=== PATIENT | female | born 1985 | race Caucasian/White ===

== ENCOUNTER 2017-01-22 17:55 | Emergency (ER) | payer BC, OTHER ==
--- NOTE | ~2017-01-22 | CR170 ---
[facility] A Service of [facility] RADIOLOGY TEXT RESULTS PATIENT: ARACELI ARREDONDO LOCATION: CFTX : 83 UNIT #: [id number] AGE: [address]: Betty Mayo SEX: F ORDER DR: [id number] [facility] [address] [place], [place] [address] [id number] E MR#: [id number] Acc #: [id number] NAME: ARACELI ARREDONDO : 1985 SEX: F STUDY DATE/TIME: 01/22/2017 17:59 UNIT: [facility] ROOM: STUDY DESCRIPTION: CR Knee 2 Views Rt Attending Physician: Betty Mayo P.A.-C. Ordering Physician: Betty Mayo P.A.-C. Primary Care Physician: Primary Care Physician No MEDICAL IMAGING REPORT This report is preliminary unless electronic signature is present EXAM Right knee, 2 views. HISTORY Knee pain after tick bite 1 week ago. FINDINGS AP and lateral projection of the knee shows smooth articular anatomy without indication of fracture or dislocation at the major weight-bearing surface of the knee. There is no indication of radiopaque foreign body about the knee surface or joint effusion. IMPRESSION Normal knee. Dictated by... Eugene Rodriguez M.D. THIS IS AN ELECTRONICALLY VERIFIED REPORT Eugene Rodriguez M.D. at 01/22/2017 11:02 PM LUPE/luiza TD: 01/22/2017 22:47 JOB #: [id number] MEDICAL IMAGING REPORT Page 1 of 1 COPY
[~2017-01-22 17:55] MED LIST: ?ANTIBIOTIC; ACETAMINOPHEN PO; ANUSOL-HC21 GM PR; FLAGYL PO; FLEXERIL10 MG PO; NABUMETONE PO; ORUDIS75 M1 DOB
[2017-01-22 18:36] LABS: BASOPHIL% 0.3 % (0-2.5); DIFF IND NO; EOSINOPHIL% 0.2 % (0.0-7.0); HEMATOCRIT 42.5 % (35.0-45.0); HEMOGLOBIN 14.3 gm/dL (12.0-16.0); LYMPHOCYTE# 2.9 X10e3 (1.0-3.5); LYMPHOCYTE% 31.9 % (17.0-45.0); MEAN CELL VOLUME 93.8 FL (83-96); MEAN CORPUSCULAR HEMOGLOBIN 31.6 PG (28-34); MEAN CORPUSCULAR HGB CONC 33.7 g/dL (30-36); MEAN PLATELET VOLUME 8.4 FL (6.5-11.5); MONOCYTE# 0.6 X10e3 (0-1.0); MONOCYTE% 6.3 % (3.0-12.0); NEUTROPHIL# 5.5 X10e3 (1.5-7.1); NEUTROPHIL% 61.3 % (40-75); PLATELET COUNT 221 X10e3 (140-420); RED BLOOD COUNT 4.54 X10e (3.90-5.30); RED CELL DISTRIBUTION WIDTH 13.8 % (11.0-15.5)
[2017-01-22 18:57] LABS: BUN/CREATININE RATIO 12.5; CALCIUM SERUM 9.1 mg/dL (8.4-10.2); CREATININE SERUM 0.8 mg/dL (0.6-1.4); GLOM FILT RATE Estimated 97.6 mL/min (>60); POTASSIUM 3.7 mmol/L (3.5-5.1)
== END 2017-01-22 19:25 | disposition home or self-care (01) ==
LOC: CFTX 17:55
PROVIDERS: Physician Assistant
DX: M25.571 Pain in right ankle and joints of right foot (principal); M25.473 Effusion, unspecified ankle; R19.7 Diarrhea, unspecified; J45.909 Unspecified asthma, uncomplicated; F41.9 Anxiety disorder, unspecified; F17.210 Nicotine dependence, cigarettes, uncomplicated
CPT/HCPCS: 36415; 73560; 80048; 85025; 86617; 86618; 99283